=== PATIENT | male | born 1995 | race Caucasian/White ===

== ENCOUNTER 2019-11-08 10:37 | Emergency (ER) | payer SELFPAY ==
--- NOTE | ~2019-11-08 | XR_ITS ---
EXAMINATION: XR shoulder LT min 2V INDICATION: Left shoulder pain TECHNIQUE: Four views of the left shoulder are submitted. COMPARISON: None FINDINGS: Normal alignment. No fracture. Glenohumeral and acromioclavicular joint spaces are normal. Soft tissues are unremarkable. IMPRESSION: No acute osseous abnormality. Reviewed, dictated and finalized at location A. [employer]
[2019-11-08 11:07] VITALS: BP 110/72; PULSE 96; RESP 18; TEMP 36.7; O2SAT 100
--- NOTE | 2019-11-08 11:41 | ED.UPPEXIN ---
HPI - Extremity Injury (Upper) General Chief Complaint: Extremity Injury, Upper Stated Complaint: left upper back pain Time Seen by Provider: 11/08/19 11:40 Source: patient and RN notes reviewed Mode of arrival: ambulatory Limitations: no limitations History of Present Illness HPI narrative: 24-year-old male presents with concern for left shoulder pain. Reports while at work approximately 5 days ago he was doing heavy lifting carrying heavy sandbags over his left shoulder and noticed left shoulder pain. Reports pain has not improved over this past week. Reports he is able to find a position of comfort, however anytime he moves his left arm or moves a certain way it is painful, reports decreased left shoder filler MD complaint: injury to: left and shoulder Related Data Home Medications Medication Instructions Recorded Confirmed Lantus U-100 Insulin 11/08/19 blood-glucose meter [True Metrix 11/08/19 11/08/19 Glucose Meter] insulin aspart U-100 [Novolog unit SUBCUT 11/08/19 Flexpen U-100 Insulin] lancets 11/08/19 11/08/19 Allergies Allergy/AdvReac Type Severity Reaction Status Date / Time No Known Allergies Allergy Unverified 11/08/19 11:40 Review of Systems Review of Systems: Narrative: CONSTITUTIONAL: Denies malaise, chills, sweats, or fever. CARDIOVASCULAR: Denies chest pain, palpitations RESPIRATORY: Denies cough or dyspnea. SKIN: Denies bruising, swelling MUSCULOSKELETAL: Left posterior shoulder pain, pain with moving his left arm NEUROLOGIC: Denies numbness. Reports left shoder filler weakness All systems reviewed & are unremarkable except as noted in HPI and below PMFSH Social History Social History Gender identity (if verbalized by the patient): Male Comments At time of signature, agree with nursing past medical, surgical, social and family history. There is no relevant family history pertinent to the presenting complaint Exam Narrative: Exam Narrative: GENERAL: Well-appearing, well-nourished, and in no acute distress. HEAD: Normocephalic, atraumatic. EYES: PERRLA, conjunctivae clear NECK: Supple. CHEST: Speaks in full sentences. No respiratory distress. HEART: Regular rate and rhythm. Normal and equal peripheral pulses. EXTREMITIES: Left shoulder has normal strength and sensation, no edema, normal range of motion. 4/5 strength with shoulder abduction and abduction. Decreased left shoder filler. Left scapula tender, left clavicle tender. Normal sensation with sensitivity to light touch and pain. No open wounds, no skin tenting, no devitalized tissue or atrophy, no trophic changes, no ecchymosis, no obvious deformity, alignment normal, nearby joints and structures intact. Distal pulses palpable and equal bilaterally, skin warm, dry, pink. Capillary refill less than 3 seconds. SKIN: Warm, dry, no rash. NEURO: Alert and oriented x3. PSYCH: Normal mood and affect Course Course Emergency Course: Patient is aware of diagnosis, understands and agrees to treatment plan. Anticipatory guidance given. Patient agrees to follow-up as directed and is aware of reasons to seek care at the emergency department. Portions of this record may have been created with voice recognition software Vital Signs Vital signs: Vital Signs Temperature 98.0 F 11/08/19 11:07 Pulse Rate 96 11/08/19 11:07 Respiratory Rate 18 11/08/19 11:07 Blood Pressure 110/72 11/08/19 11:07 Pulse Oximetry 100 11/08/19 11:07 Temperature 98.0 F 11/08/19 11:07 Pulse Rate 96 11/08/19 11:07 Respiratory Rate 18 11/08/19 11:07 Blood Pressure 110/72 11/08/19 11:07 Pulse Oximetry 100 11/08/19 11:07 Reviewed. MDM - Extremity Injury (Upper) MDM Narrative Medical decision making narrative: Patients pain is consistent with musculoskeletal etiology. No signs of neurological or vascular compromise on exam. Compartments and tissues are soft without signs of compartment syndrome. Pain is felt appropriate for further evaluation on an out
== END 2019-11-08 12:45 | disposition home or self-care (01) ==
PROVIDERS: Emergency Provider Nurse Practitioner
DX: M25.512 Pain in left shoulder (principal); E10.9 Type 1 diabetes mellitus without complications
CPT/HCPCS: 73030; 99213; A4565; G0463